=== PATIENT | male | born 1995 | race African-American/Black ===

== ENCOUNTER 2017-04-14 17:40 | Emergency (ER) | payer SELFPAY ==
[~2017-04-14] VITALS: Ht 182.9 cm; Wt 83.9 kg
--- NOTE | 2017-04-14 17:44 | NUR ---
PRESENTS SELF TO ED DUE TO ABSCESS TO R GLUTEUS X 5 DAYS. PATIENT IS AFEBRILE. VSS
--- NOTE | 2017-04-14 17:50 | NUR ---
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
[2017-04-14] MEDS ORDERED: TDAP [DIPH/PERTUSSIS/TET] 0.5 ML VIAL IM ONE ×2 (17:59→18:00)
--- NOTE | 2017-04-14 18:17 | NUR ---
[facility] AT [facility] FOR I&D
[2017-04-14 18:27] VITALS: BP 135/69
== END 2017-04-14 18:28 | disposition home or self-care (01) ==
LOC: ER 17:42
DX: L02.31 Cutaneous abscess of buttock (principal); F17.200 Nicotine dependence, unspecified, uncomplicated
CPT/HCPCS: 90715; A4606; A6402; Z7610

== ENCOUNTER 2017-04-18 15:13 | Emergency (ER) | payer SELFPAY ==
[~2017-04-18] VITALS: Ht 182.9 cm; Wt 54.4 kg
[2017-04-18 15:29] VITALS: BP 134/77
== END 2017-04-18 16:10 | disposition home or self-care (01) ==
LOC: ER 15:14
DX: L02.31 Cutaneous abscess of buttock (principal)
CPT/HCPCS: 99281; A4606; Z7610; Z7502